=== PATIENT | male | born 1975 | race Caucasian/White ===

== ENCOUNTER 2016-07-01 05:33 | Day surgery (SDC) ==
[2016-07-01] MEDS ORDERED: LR 1,000 ML ONE (06:12)
[2016-07-01] MEDS ORDERED: MYLICON DROPS (DOSE) MISC ONE (08:04)
[2016-07-01] MEDS ORDERED: DIPRIVAN 1% ONE (08:42)
[2016-07-01] MEDS ORDERED: FENTANYL ONE (08:42)
[2016-07-01] MEDS ORDERED: VERSED ONE (08:42)
[2016-07-01 09:00] VITALS: BP 108/57
[2016-07-01] MEDS ORDERED: XYLOCAINE-MPF 2% ONE (09:17)
--- NOTE | 2016-07-06 04:19 | OPERATIVE NOTE ---
PROCEDURE DATE: 07/01/2016 REFERRING PHYSICIAN: Taylor Pearson MD. INDICATION FOR CONSULTATION: 1. Abdominal pain. 2. Nausea. 3. Constipation alternating with diarrhea. 4. Family history of colon cancer. PROCEDURE PERFORMED: 1. Colonoscopy with polypectomy. 2. Colonoscopy with biopsy. CONSENT: Informed consent was obtained from the patient prior to the procedure. The risks, benefits, and alternatives were discussed. MEDICATION: The patient received monitored anesthesia care. PERFORMING PHYSICIAN: Debi Ortiz MD. ASSISTANTS: 1. [facility] 2. Danny Tong RN. 3. Karen Valdivia CRNA. 4. Jhonathan Aguirre MD (anesthesia). COMPLICATIONS: There were no complications. ESTIMATED BLOOD LOSS: Less than 1 mL. SPECIMENS REMOVED: 1. Transverse colon polyp. 2. Two polyps at 20 cm. 3. Rectal polyp. CECAL INTUBATION TIME: 3 minutes. WITHDRAWAL TIME: 26 minutes. PREP QUALITY: Fair. FINDINGS: After sedation was achieved, the pediatric colonoscope was inserted to the terminal ileum. The terminal ileum, ileocecal valve, and appendiceal orifice appeared grossly normal. There was, however, a cecal AVM that was nonbleeding. Upon withdrawal, the ascending colon appeared grossly normal. There was a 5-10 mm polyp in the distal transverse colon that appeared grossly normal that was removed by snare cautery. Upon further withdrawal, the descending and sigmoid colon appeared grossly normal. There were 2 sessile polyps at 20 cm that were removed by snare cautery. There was a single rectal polyp that was removed by cold biopsy forceps. In the upper rectum, there were grade 3 internal hemorrhoids. On retroflexed view, there were small external hemorrhoids. In the upper rectum, there were grade 3 internal hemorrhoids. On retroflexed view, there were small external hemorrhoids. After the exam was complete, the lumen was decompressed and the scope was removed without incident. IMPRESSION: 1. Cecal arteriovenous malformations, nonbleeding. 2. Multiple colon polyps including the transverse colon, polyps at 20 cm, and rectal polyps. PLAN: 1. Begin Bentyl 10 mg 4 times a day. 2. Continue a high-fiber diet. 3. We have the patient undergo a repeat colonoscopy in 5 years. 4. He should return to clinic in 6 weeks to assess interval progress.
== END 2016-07-01 09:15 | disposition home or self-care (01) ==
LOC: ENDO 05:33
PROVIDERS: ATTEND Internal Medicine Gastroenterology
DX: K63.5 Polyp of colon (principal); K64.2 Third degree hemorrhoids; K64.4 Residual hemorrhoidal skin tags; Q27.33 Arteriovenous malformation of digestive system vessel
CPT/HCPCS: 88305; J2250; J3010; J7120